=== PATIENT | female | born 1965 | race Caucasian/White ===

== ENCOUNTER 2024-01-03 14:12 | Day surgery (SDC) | payer BC, SELFPAY ==
[2024-01-02 10:37] VITALS: BMI 26.6
[2024-01-03] VITALS (7 sets, daily range): BP systolic 113–130; BP diastolic 40–72; PULSE 55–76; RESP 10–18; TEMP 36.1–36.9; O2SAT 98–100; BMI 26.6
--- NOTE | 2024-01-03 | PATH_ITS ---
[facility] Accession Number: [id number] No. of containers..01 Tissue . 01 Material submitted: . endometrium - ENDOMETRIAL CURETTINGS . 01 Diagnosis: ENDOMETRIUM, CURETTINGS: Superficial inactive-type endometrium with reactive/metaplastic changes. Polypoid fragment of endocervical mucosa with reactive changes and squamous metaplasia. Ectocervical epithelium with no significant pathologic alterations. No endometrioid intraepithelial neoplasia and no malignancy. MRV 01/07/2024 1316 Local . 01 Electronically signed: . Nelda Gonzalez MD, Pathologist NPI- [id number] . 01 Gross description: . Received in formalin with two patient identifiers and endometrial curettings, are multiple hansen soft tissue fragments aggregating to 2.5 x 1.2 x 0.3 cm. Filtered and submitted in A1. ([id number]) /MRV 01/04/2024 1720 Local . 01 Pathologist provided ICD-10: N85.8, N95.0 . 01 CPT . 803241 Specimen Comment: A courtesy copy of this report has been sent to [phone] Performed at: [address] [id number] MD Hood Singh MD Phone: [phone]
[2024-01-03] MEDS: LACTATED RINGERS 1,000 ML 42 ML IV (14:57)
[2024-01-03] MEDS: ACETAMINOPHEN 325 MG TABLET 975 MG PO (14:59)
--- NOTE | 2024-01-03 15:23 | SUR.OPER ---
Lithotomy on padded OR bed, head on pillow, arms secured on padded arm boards at <90 degrees abduction. Legs secured in padded yellow fins stirrups.
--- NOTE | 2024-01-03 15:35 | P.HPOB_ITS ---
History of Present Illness History of Present Illness Reason for admission: vaginal bleeding (Postmenopausal) Narrative: Mague Feng is a 58 year old female 6 para 6 who presents for a D&C hysteroscopy due to postmenopausal bleeding with abnormal cystic changes in the endometrium. Family history of a mother with uterine sarcoma. [facility] Medical History (Updated 01/03/24 @ 14:53 by Blank New RN) delivery delivered [place] fracture of maxilla PMB (postmenopausal bleeding) Social History household members: spouse Smoking Status: Never smoker Meds Home Medications and Allergies Home Medications Medication Instructions Recorded Confirmed Type atorvastatin 10 mg tablet (Lipitor) 10 mg PO DAILY 12/28/23 12/28/23 History atorvastatin 20 mg tablet 20 mg PO ONCE PM 01/03/24 01/03/24 History estradiol 1 mg tablet 1 mg PO DAILY 01/03/24 01/03/24 History progesterone micronized 100 mg 100 mg PO ONCE PM 01/03/24 01/03/24 History capsule Allergies Allergy/AdvReac Type Severity Reaction Status Date / Time pramoxine Allergy Verified 01/03/24 15:03 [From Vagisil Anti-Itch] Exam Vital Signs (past 8 hours): - 01/03/24 14:30 Temperature 97 F L Pulse Rate 76 Respiratory Rate 16 Blood Pressure 130/72 Pulse Oximetry 99 Oxygen Delivery Method Room Air Oxygen Delivery Method Room Air Narrative Exam Narrative: HEENT: No thyromegaly, no anterior cervical or supraclavicular lymphadenopathy. Lungs:Clear to auscultation bilaterally, no wheezes. Cardiovascular: Regular rate and rhythm, no murmurs, rubs, or gallops. Abdomen: Well-healed Pfannenstiel scar. No hepatosplenomegaly. No masses palp able. External genitalia: Normal Vagina: Normal Cervix: Normal Bimanual exam: 8 Week size anteverted uterus. Mobile. Rectal: No masses. Assessment & Plan Assessment & Plan narrative: Assessment: 58-year-old 6 para 6 with postmenopausal bleeding and cystic changes in the endometrium Family history of mother with uterine sarcoma Plan: D&C hysteroscopy The risks, benefits, and alternatives to the procedure were explained to the patient. The risks including bleeding, infection, and uterine perforation. She understands these risks and agrees to proceed. A full par Q was held and consent form was signed.
--- NOTE | 2024-01-03 15:37 | PM.PREOP ---
Pre-operative Note Interval Note History & Physical reviewed/Exam performed by Physician: Yes Changes to H&P: No H&P completed within 30 days and has changed as indicated here:: 01/03/24
--- NOTE | 2024-01-03 16:24 | PM.GYNOP.1 ---
Operative Date/Time/Diagnoses Date of procedure: 01/03/24 Time of procedure: 16:24 Pre-op diagnosis: FINISHER COLD ROLLING bleeding Cystic areas on ultrasound Post-op diagnosis: same Procedure & Clinicians Procedure: Procedures Operation Date: 01/03/24 15:15 Actual Procedure Side Surgeon p Hysteroscopy D&C Augustina Isaacs MD Indications: 58 year old with FINISHER COLD ROLLING bleeding Cystic areas on ultrasound Surgeon: Augustina Isaacs Anesthesia Type: General (LMA) Operative Notes Findings: 8 wk size anteverted uterus Both Fallopian tube ostia observed Thickened area at left fundus Closure Type: not applicable Specimen(s): endometrial curettings Estimated blood loss (mL): 10 Blood products transfused: none Procedure in detail: Aftr informed consent was obtained, the patient was taken to the operating room where she was placed in the dorsal supine position. After adequate LMA general anesthesia was achieved, she was placed in the dorsal lithotomy position, and prepped and draped in the usual sterile fashion. A time-out was performed. A bivalve speculum was placed into the vagina and the anterior lip of the cervix was grasped with a single-tooth tenaculum. Cervical os was sequentially dilated until the MyoSure hysteroscope could pass easily into the endometrial cavity. Initial inspection with the hysteroscope revealed a thickened area near the left fundus of the uterus. The MyoSure Lite was used to do a directed biopsy in that area. The instruments were removed from the uterus. The single-tooth tenaculum was removed from the anterior lip of the cervix. The bivalve speculum was removed from the vagina. Sponge, lap, and instrument counts were correct x2. The patient tolerated the procedure well, and was taken to PACU in stable condition. Complications: none Post-operative Condition: stable Disposition: PACU Plan for aftercare: Home afer recovery
== END 2024-01-03 17:15 | disposition home or self-care (01) ==
PROVIDERS: Referring Provider Obstetrics & Gynecology; Visit Provider Obstetrics & Gynecology
PROC: 0UDB8ZZ Extraction of Endometrium, Via Natural or Artificial Opening Endoscopic (ICD-10-PCS; CPT 58558; principal; 2024-01-03 15:15)
DX: N85.8 Other specified noninflammatory disorders of uterus (principal); N95.0 Postmenopausal bleeding
CPT/HCPCS: 58558; J1100; J1885; J2405; J2704